=== PATIENT | male | born 1950 | race Caucasian/White ===

== ENCOUNTER 2018-12-31 12:28 | Inpatient (IN) ==
[2018-12-31] MEDS ORDERED: MORPHINE SULFATE 4 MG/1 ML IVP ONE ×3 (12:39→15:53)
[2018-12-31] MEDS ORDERED: Sodium Chloride 0.9% 1,000 ML PRIMARY IV ONE (12:43)
--- NOTE | 2018-12-31 12:51 | EKG ---
[address] [address] Measurements Intervals [place] Rate: 58 P: 5 DE: 141 QRS: 14 QRSD: 95 T: 11 QT: 433 QTc: 429 Interpretive Statements SINUS BRADYCARDIA No previous ECG available for comparison Electronically Signed On 12-31-18 15:52:15 MDT by Amarjit Winkler [email or web address]
[2018-12-31 12:52] LABS: BASOPHILS # (AUTO) 0.03 10*3/UL; BASOPHILS % (AUTO) 0.5 % (0-1); EOSINOPHILS # (AUTO) 0.06 10*3/UL; EOSINOPHILS % (AUTO) 0.9 % (0-8); Hematocrit [HCT] 49.5 % (42.0-52.0); Hemoglobin [HGB] 16.4 g/dL (14.0-18.0); MEAN CORPUSCULAR HEMOGLOBIN 30.4 PG (27-31); MEAN CORPUSCULAR HGB CONC 33.1 g/dL (33-37); MEAN CORPUSCULAR VOLUME 91.8 FL (80-90); MEAN PLATELET VOLUME 10.5 FL (7.4-12.2); MONOCYTES # (AUTO) 0.59 10*3/UL (0.3-0.8); MONOCYTES % (AUTO) 9.2 % (5-15); NEUTROPHILS % (AUTO) 43.7 % (50-80); RED BLOOD COUNT 5.39 10^6/uL (4.70-6.10)
[2018-12-31] MEDS ORDERED: LIDOCAINE HCL 2 % 10 ML JELLY URO-JECT TOPICAL PRN (12:52)
[2018-12-31 12:53] LABS: PLATELET MORPHOLOGY COMMENT NORMAL MORPHOLOGY (NORM); RBC MORPHOLOGY COMMENT NORMAL MORPHOLOGY (NORM); WBC MORPHOLOGY COMMENT NORMAL MORPHOLOGY (NORM)
[2018-12-31 13:00] LABS: BUN/CREATININE RATIO 15.83 (6-20); LIPASE 91 IU/L (23-300); SERUM ALBUMIN 4.8 g/dL (3.5-4.8)
[2018-12-31] MEDS ORDERED: ONDANSETRON 4 MG/2 ML VIAL IVP ONE (13:04)
[2018-12-31 13:15] LABS: BILIRUBIN,URINE NEGATIVE (NEG); CLARITY,URINE CLEAR (CLEAR); COLOR,URINE YELLOW (Y); GLUCOSE, URINE (UA) NEGATIVE (NEG); OCCULT BLOOD,URINE TRACE (NEG); PROTEIN,URINE 100 mg/dl (NEG); URINE SAMPLE TYPE CATH SPECIMEN; UROBILINOGEN,URINE 0.2 EU/dL (0.2)
[2018-12-31 13:16] LABS: URINE SPECIFIC GRAVITY - MAN 1.025
[2018-12-31 13:18] LABS: RBC,URINE 0-3 /hpf; SQUAMOUS EPITHELIAL CELL,UR MODERATE
--- NOTE | 2018-12-31 13:59 | DI ---
CT Head WO Contrast 12/31/2018 11:45 AM History: [facility] [place] ^Trauma Comparison: None. Procedure: Noncontrast CT images through the head were reviewed. Findings: There is no acute intracranial hemorrhage or extra-axial fluid collection. The ventricles a re symmetric. There is mild global atrophy which is within the expected range for age. Decreased atte nuation in the periventricular and subcortical white matter is consistent with mild chronic small ves tariq ischemic changes. There is otherwise normal antonio-white differentiation without focal mass or mass -effect. The visualized portions of the paranasal sinuses and mastoid air cells are clear. Review of the osseous structures demonstrate no depressed calvarial fracture or aggressive osseous lesion. Left periorbital soft tissue contusion is noted. Debris in the bilateral external auditory canals is most likely cerumen. Impression: 1. No acute intracranial findings. 2. Age related senescent changes as above.
--- NOTE | 2018-12-31 14:14 | DI ---
CT Cervical Spine WO Contrast 12/31/2018 11:44 AM History: [facility] [place] ^Trauma Comparison: None. Procedure: Noncontrast CT images were obtained through the cervical spine for review in the axial, sa gittal, and coronal planes. Findings: Osseous structures show no acute fracture or subluxation. A corticated ossific fragment maryan ng the T1 spinous processes most likely the sequela of remote trauma. There is preservation of the no rmal cervical lordosis. Vertebral body heights are maintained. C2/3: Normal intervertebral disc height. There is no significant osseous central canal stenosis. Unco vertebral joint and facet arthrosis results in mild left neuroforaminal narrowing. C3/4: Moderate intervertebral disc height loss. Posterior disc osteophyte complex results in narrowin g of the central canal to 5 mm. Uncovertebral joint and facet arthrosis results in severe right and m oderate left neuroforaminal narrowing. C4/5: Mild intervertebral disc height loss. Ossification of the posterior longitudinal ligament resul ts in narrowing of the central canal to 7 mm. Uncovertebral joint and facet arthrosis results in mild bilateral neuroforaminal narrowing. C5/6: Severe intervertebral disc height loss. Ossification of the posterior longitudinal ligament res ults in narrowing of the central canal to 8 mm. Uncovertebral joint and facet arthrosis result in sev ere bilateral neuroforaminal narrowing. C6/7: Moderate intervertebral disc height loss. Posterior disc osteophyte complex results in narrowin g of the central canal to 10 mm. Uncovertebral joint and facet arthrosis results in moderate bilatera l neuroforaminal narrowing. C7/T1: Mild intervertebral disc height loss. There is no significant osseous central canal stenosis. Uncovertebral joint and facet arthrosis results in mild left neural foraminal narrowing. The pre-vertebral soft tissues are within normal limits. There is no cervical lymphadenopathy. Vascul ar structures are grossly intact, though evaluation is limited in the absence of intravenous contrast . The visualized parotid and thyroid glands exhibit normal unenhanced morphology. Impression: 1. No evidence of acute cervical spine fracture or subluxation. 2. Multilevel degenerative disc disease as above.
--- NOTE | 2018-12-31 14:32 | DI ---
CT Chest W Contrast 12/31/2018 11:44 AM History: [facility] – [place] ^Trauma ^please get reconstruction views of spine Comparison: Chest x-ray from earlier the same day. Technique: Contrast enhanced CT of the chest was performed after the administration of 75 mL of Ultra vist 370 intravenous contrast. Axial, coronal, and sagittal images were obtained from the thoracic in let through the lung bases. Findings: Evaluation of the lungs demonstrates patchy groundglass opacities in the left greater than right lung bases. There is a small left pneumothorax mainly in the anterior left lung base. A thin sl iver of gas is noted along the left lung apex. There is no dense consolidation or pleural effusion. M ultiple bilateral pulmonary nodules are present, some of which are calcified consistent with prior gr anulomatous infection. The largest noncalcified nodule measures 5 mm in the right lower lobe on serie s 2 image 56. There is mild diffuse bronchial wall thickening without endobronchial lesion. There is no mediastinal or hilar lymphadenopathy. A calcified right hilar lymph node is noted. The aorta and pulmonary vesse ls demonstrate normal course and caliber. There are atheromatous aortic and coronary artery calcifica tions. Heart size is within normal limits with no pericardial effusion. The thyroid exhibits normal C T morphology. Nondisplaced left posterolateral eighth and ninth rib fractures are noted. There is mild adjacent gas in the deep soft tissues of the posterior chest wall. Multilevel degenerative endplate changes of th e spine are present without acute spinal fracture. There is mild bilateral gynecomastia. Impression: 1. There are 2 nondisplaced left posterolateral rib fractures with a small left pneumothorax and left greater than right lung base groundglass opacities that could represent atelectasis versus pulmonary contusion. Followup to resolution is recommended. 2. There is diffuse bronchial wall thickening without endobronchial lesion. This is a non-specific fi nding that is most commonly seen in the setting of acute or chronic bronchitis, as well as reactive a irways disease. 3. Multiple bilateral pulmonary nodules, the largest noncalcified nodule in the right lower lobe son uring 5 mm. Fleischner Society 2017 guidelines for management of incidentally detected pulmonary nodu les is as follows: Multiple solid lung nodules less than 6 mm: Low risk: No routine follow-up. High risk: Optional CT at 12 months. These findings were discussed telephonically with Dr. Boulter of the Emergency Department at 13:15 ho urs on the day of the exam.
--- NOTE | 2018-12-31 14:40 | DI ---
CT Abdomen/Pelvis W Contrast 12/31/2018 11:44 AM History: [facility] [place] ^Trauma ^please get reconstruction views of spine Comparison: None. Technique: Imaging was performed with a multi-detector CT scanner. Data acquisition was obtained from the dome of the diaphragm through the pubic symphysis without oral contrast and after the uneventful administration of 75 mL of Ultravist 370 intravenous contrast material. Multiplanar reformations wer e performed. Findings: There is normal CT appearance of the liver, gallbladder, adrenal glands, spleen, kidneys, a nd pancreas. Hollow viscus organs demonstrate normal course and caliber. There is scattered colonic d iverticulosis without CT evidence of acute diverticulitis. The appendix is unremarkable. A Jimenez cath eter is present in the decompressed urinary bladder. The prostate is enlarged. There is no free intra peritoneal air or fluid. No abdominopelvic lymphadenopathy is present. Vascular structures are intact . There is no inguinal or abdominal wall hernia. Left posterolateral eighth and ninth rib fractures with associated pneumothorax, soft tissue emphysem a, and possible pulmonary contusion are better assessed on the CT chest from the same day. There is m ultilevel degenerative disc disease and postsurgical changes at the L5/S1 level. There is transitiona l lumbosacral anatomy with sacralization of the bilateral L5 transverse processes. There are degenera tive changes of the bilateral SI joints with ankylosis on the right. There are degenerative changes o f the bilateral hips. Impression: 1. There is no CT evidence of solid organ or hollow viscus injury. 2. Colonic diverticulosis without CT evidence of acute diverticulitis. 3. A Jimenez catheter is present in the decompressed urinary bladder.
--- NOTE | 2018-12-31 14:54 | DI ---
XR CXR 1VW 12/31/2018 12:00 PM HISTORY: [facility] [place] ^trauma Comparison: None. Findings: A single portable frontal view of the chest is submitted. There is no focal consolidation. Patchy left greater than right lung base opacities. Lucency at the l eft lung apex and left lung base may represent artifact versus a small pneumothorax. There is no larg e pleural effusion. The cardiomediastinal silhouette is within normal limits for technique. The osseo us structures are notable for a nondisplaced left posterior eighth and ninth rib fractures. Impression: 1. Possible small left pneumothorax with nondisplaced left posterior eighth and ninth rib fractures. 2. There is no dense consolidation or pleural effusion. Patchy left greater than right lung base opac ities may represent atelectasis versus pulmonary contusion in the correct clinical setting.
[2018-12-31] MEDS ORDERED: KETOROLAC 15 MG/1 ML VIAL IVP ONE ×2 (15:14→15:17)
--- NOTE | 2018-12-31 15:48 | PDOC ---
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 He states that the latter is on on the roof slipped and then he fell off the rough. He landed flat on his back. He states that is when was knocked out of him. He denies losing any consciousness. Patient states that his back hurts. He's no longer short of breath but cannot take a deep breath. Patient had a complete workup in the emergency department which shows left revise been unremarkable. Patient has CT scan head chest abdomen and pelvis. It shows a small pneumothorax on the left with fractures of 89 ribs posteriorly. He also has compression fractures of's T6 and T11. Is unsure whether these fractures are new or old. Past Medical History Medical History: No significant past medical problems Surgical History: Shoulder surgery Tobacco Use: Never Smoker In the Past 12 Months, Have Used or Abuse Any of the Following Substance: None Medication / Allergies Home Medications: Home Medications Medication Instructions Recorded Confirmed NK 04/11/18 12/31/18 Allergies/Adverse Reactions: Allergies Allergy/AdvReac Type Severity Reaction Status Date / Time Penicillins Allergy Mild Hives Verified 12/31/18 13:42 Exam - Vitals Vital Signs: Vital Signs Temperature 96.3 F Temperature Source Temporal Artery Scan Pulse Rate [Pulse Oximeter 66 Right] Respiratory Rate 22 Blood Pressure [Left Arm] 124/81 Pulse Ox 97 Oxygen Delivery Method Room Air Height 6 ft 3 in Weight 250 lb - General General Appearance: No Acute Distress, Cooperative - Head Head Exam: Normal Inspection, Normocephalic - Eye Eye Exam: POSITIVE: PERRL, EOMI - Neck Neck Exam: Full ROM, No Tenderness - Respiratory Respiratory Exam: POSITIVE: Clear to Auscultation - Bilaterally, Breathing Non Labored - Cardiovascular Cardiovascular Exam: POSITIVE: RRR, No Murmur - GI/Abdominal GI/Abdominal Exam: POSITIVE: Non Tender, Non Distended, Soft - Rectal Rectal Exam: POSITIVE: Deferred - External Exam: POSITIVE: Deferred - Extremities Extremities Exam: POSITIVE: Normal Inspection, Full ROM, No Clubbing Present, No Edema Present, No Cyanosis Present - Back Additional Back Exam Details: Patient is too tender to roll over in bed so no back exam at this time - Neurological Neurological Exam: POSITIVE: Oriented x 3, Reflexes Normal, Normal Gait, CN II- XII Intact, Moves All Extremities Equally Additional Neurological Exam Details: Glascow coma 15 - Psychiatric Psychiatric Exam: POSITIVE: Normal Affect, Normal Mood - Integumentary Integumentary Exam: POSITIVE: Normal Color, Warm, Dry Results - Labs CBC and BMP: 12/31/18 12:35 12/31/18 12:35 Assessment and Plan - Patient Problems (1) Pneumothorax, left Current Visit: Yes Status: Acute Code(s): J93.9 - Pneumothorax, unspecified (2) Ribs, multiple fractures Current Visit: Yes Status: Acute Code(s): S22.49XA - Multiple fractures of ribs, unspecified side, initial encounter for closed fracture - Assessment / Plan Additional Assessment/Plan Details: This finding. The patient is being admitted. He'll need to be in for pain management. We'll do serial chest x-rays make sure the pneumothorax does not expand. Will consult orthopedic
--- NOTE | 2018-12-31 16:00 | DI ---
AP CHEST X-RAY, 12/31/2018 3:18 PM : Clinical History: Left pneumothorax. Previous Exam: Earlier today at 1231 hours. Soft Tissues: No subcutaneous emphysema. On this view the patient took a shallow inspiration. Bones: Normal. No rib fractures noted. Heart: Normal heart size. Lungs: No pneumothorax. The air collection seen on the CT scan may actually be in the extra parietal pleural space. There is increased density in the left lower lobe either representing atelectasis or a pulmonary contusion. Effusion(s): None. Mediastinum: Normal mediastinum. Nodules: No pulmonary nodules. Reading: No pneumothorax identified. There is a density in the left lower lobe that either represents atelecta sis or a pulmonary contusion.
[2018-12-31] MEDS ORDERED: DOCUSATE 100 MG CAPSULE PO PRN (16:13)
[2018-12-31] MEDS ORDERED: LIDOCAINE W/ SODIUM BICARB 0.5 ML SYR SUBD PRN (16:13)
[2018-12-31] MEDS ORDERED: ONDANSETRON 4 MG/2 ML VIAL IVP PRN (16:13)
[2018-12-31] MEDS ORDERED: MORPHINE SULFATE 2 MG/1 ML IVP PRN (16:13)
[2018-12-31] MEDS ORDERED: CALCIUM CARBONATE 500 MG (TUMS) CHEWABLE TABLET PO PRN (16:13)
[2018-12-31] MEDS ORDERED: oxyCODONE/APAP 7.5/325 Tab 1 TAB TAB PO PRN (19:19)
[2018-12-31] MEDS: KETOROLAC 15 MG/1 ML VIAL IVP SCH (20:37)
[2018-12-31] MEDS: FAMOTIDINE 20 MG TABLET PO SCH (20:37)
--- NOTE | 2018-12-31 20:56 | PDOC ---
Multiple Trauma HPI - General Chief Complaint: Trauma Stated Complaint: FELL OFF ROOF-TRAUMA Date Seen by Provider: 12/31/18 Time Seen by Provider: 12:30 Source: POSITIVE: Patient, Spouse Exam Limitations: POSITIVE: No limitations Nurse's Notes Reviewed & Considered: Yes - History of Present Illness Initial Comments: The patient is a 68-year-old male. He was shingling the roof of his house and he fell off a roof. He probably fell 15-20 feet and states he fell flat on his back. He states that the "wind was knocked out of me". He complains of pain over the posterior thorax which is exacerbated by movement and deep inspiration. He is brought to the emergency room by private auto; he reportedly refused ambulance transport. Patient denies any known associated head neck abdominal hip or extremity trauma or discomfort. Patient has a history of chronic back pain and has undergone back surgery. Have you received a tetanus shot in the past 10 years?: No Body Location Affected: REPORTS: Chest, Back Timing: REPORTS: Abrupt Duration: 1 hour Severity: Moderate Quality: REPORTS: "Pain" Location at Time of Onset: REPORTS: Home Associated Symptoms: REPORTS: Trouble Breathing, Recalls Injury, Recalls Coming to ER. DENIES: Memory Impairment, Blow to Head, Lost Consciousness Duration of Impairment/LOC:: 0 Any Prior Injuries Related to Current Complaint?: No - Patient Home Medications Home Medications: Home Medications NK 04/11/18 - Patient Allergies Allergies/Adverse Reactions: Allergies Allergy/AdvReac Type Severity Reaction Status Date / Time Penicillins Allergy Mild Hives Verified 12/31/18 16:19 Past Medical History - heen HEENT History: Denies History Cardiovascular History: Denies History Respiratory History: Denies History Gastrointestinal History: Denies History Genitourinary History: Denies History Endocrine History: Denies History Musculoskeletal History: Back Pain Neurological History: Denies History Blood Disorders: Denies History Psychiatric History: Denies History History of Sexually Transmitted Diseases: No Male Reproductive History: Denies History Cancer History: Denies History In Past Year Been Physically Harmed or Verbally Threatened: No History of MDRO: No History of Other Communicable Diseases: No Tobacco Use: Never Smoker Type of alcohol normally used: Beer In the Past 12 Months, Have Used or Abuse Any Substance: None Previous Surgical History: Yes Type / Date of Surgery: BACK SURGERY, CALISTA KNEE SURGERIES, RIGHT SHOULDER SURGERY Significant Family History: No pertinent family hx Past Medical History Reviewed: Reviewed - No Changes ROS - Limitations ROS Limitations: No Limitations Constitution: REPORTS: Denies Symptoms Cardiovascular: REPORTS: Denies Cardiac Symptoms Respiratory: REPORTS: Hurts To Breathe Neurological: REPORTS: Denies Neuro Symptoms Gastrointestinal: REPORTS: Denies GI Symptoms Endocrine: REPORTS: Denies Symptoms Musculoskeletal: REPORTS: Back Pain (Thoracic and lumbar areas) Genitourinary: REPORTS: Denies Symptoms Eyes: REPORTS: Denies Symptoms ENT: REPORTS: Denies Symptoms Skin: REPORTS: Denies Skin Symptoms Lympathic: REPORTS: Denies Lympathic Symptoms Immunologic: POSITIVE: Denies Symptoms Psychiatric: POSITIVE: Denies Psych Symptoms Multiple Trauma Exam - General Appearance General Appearance: POSITIVE: Alert, Cooperative, Moderate Distress. NEGATIVE: No Acute Distress, No Evidence of Trauma - HEENT Head / Face: POSITIVE: Atraumatic, Normal Inspection, No Facial Swelling Eyes: POSITIVE: Inspection Normal, PERRL, EOM's Intact, Eyelids Uninjured, Conjunctivae Uninjured, No Nystagmus, No Globe Trauma, Sclera Normal, Normal Corneal Inspection, No Papilledema Ears: POSITIVE: Ears Normal Inspection, TM Normal Inspection, Auricle Normal, External Canal Normal Nose: POSITIVE: Inspection Normal, No Apparent Trauma, Nares Normal, No CSF Leak Oropharynx: POSITIVE: External Inspection Nml, Pharynx Inspect. Nml, Airway Intact, Voice Normal, Moist Mucous Membranes, No Oral Injury, Lips Normal, Gums Normal, No Drooling, No Thrush, Normal Gag Reflex Dental: POSITIVE: No Dental Injury - Pupil Size Pupil Size: 3 mm: Bilateral (PERRLA) - Neck Neck: POSITIVE: Trachea Midline, Distracting Injuries. NEGATIVE: Nexus Criteria Negative - Respiratory / CVS Respiratory / CVS: POSITIVE: No Ecchymosis, Breath Sounds Normal, No Respiratory Distress, Heart Sounds Normal, Regular Rate/Rhythm, Rib Tenderness, Splinting, Tenderness (See diagram), See Diagram. NEGATIVE: Chest Non Tender (Pain on palpation posterior and anterior left thorax), Rib Palpable FX, Crepitus, SubQ Emphysema, Paradoxical Movements, Decreased Breath Sounds, Ecchymosis, Swelling, Abrasion(s), Wheezes, Rales, Rhonchi, Tachycardia, Bradycardia, Irregularly Irreg Rate Peripheral Pulses: Radial (R): 2+, Radial (L): 2+, Dorsalis-pedis (R): 2+, Dorsalis-pedis (L): 2+ - Abdomen Abdomen: Soft: (All Quadrants), Normal Bowel Sounds: (All Quadrants), Denies Tenderness: (All Quadrants), No Splenomegaly: (All Quadrants), No Hepatomegaly: (All Quadrants), No Guarding: (All Quadrants), No Rebound: (All Quadrants), No Palpable Pulse: (All Quadrants), No Palpabale Mass: (All Quadrants), No Distention: (All Quadrants), No Rigidity: (All Quadrants) - Neuro / Psych 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 Tenderness (Thoracic and lumbosacral), Limited ROM (Pain with flexion and lying flat), See Diagram. NEGATIVE: Painless ROM, CVA Tenderness (R), CVA Tenderness (L), Muscle Spasm - Extremities Extremity Assessment: Non-Tender: (ALL), Normal ROM: (ALL), No Edema: (ALL), Normal Inspection: (ALL), No Swelling: (ALL) Joint Exam: POSITIVE: Joints Normal, Normal ROM, Normal Gait, Normal Weight Bearing Images - Complete Complete: 1 - Pain on palpation 2 - Pain on palpation Multiple Trauma Progress - Results Reviewed by me Xrays/CTs/US Reviewed by me: Yes Discussed with Radiologist: Yes Radiology Findings: AP chest x-ray and CT scan of chest with IV contrast with reconstruction views of the spine shows posterior lateral fractures of the left eighth and ninth rib with small pneumothorax. CT scan of abdomen and pelvis with IV contrast normal. Spinal reconstruction views on CT chest and abdomen shows no acute injuries. Lab Results Reviewed by Me: Yes Lab Results:: Laboratory Results 3 12/31/18 12/31/18 12/31/18 12:35 12:35 12:35 WBC 6.41 RBC 5.39 Hgb 16.4 Hct 49.5 MCV 91.8 H MCH 30.4 MCHC 33.1 RDW Std Deviation 47.4 RDW Coeff of Celina 14.2 Plt Count 239 MPV 10.5 Immature Gran % (Auto) 0.5 Neut % (Auto) 43.7 L Lymph % (Auto) 45.2 Caswell % (Auto) 9.2 Eos % (Auto) 0.9 Baso % (Auto) 0.5 Immature Gran # (Auto) 0.03 Neut # (Auto) 2.80 Lymph # (Auto) 2.90 Caswell # (Auto) 0.59 Eos # (Auto) 0.06 Baso # (Auto) 0.03 WBC Morphology Comment Normal morphology Plt Morphology Comment Normal morphology RBC Morph Comment Normal morphology PT 11.5 INR 1.00 Sodium 147 H Potassium 4.0 Chloride 110 Carbon Dioxide 23 Anion Gap 14 BUN 19 Creatinine 1.2 Estimated GFR 60 BUN/Creatinine Ratio 15.83 Glucose 108 Calculated Osmolality 306.0 H Lactic Acid Calcium 9.9 Total Bilirubin 0.6 AST 49 ALT 28 Alkaline Phosphatase 95 Troponin I Total Protein 8.0 Albumin 4.8 Globulin 3.2 Albumin/Globulin Ratio 1.50 Amylase Lipase Ur Collection Type Urine Color Urine Clarity Urine pH Ur Specific Franklin U Specif Grav (Refrac) Urine Protein Urine Glucose (UA) Urine Ketones Urine Occult Blood Urine Nitrate Urine Bilirubin Urine Urobilinogen Ur Leukocyte Esterase Urine RBC Urine WBC Ur Squamous Epith Cells Ur Renal Epithelial Cell Urine Crystals Urine Bacteria Urine Casts Urine Mucus Urine Trichomonas Urine Yeast Ur Culture Indicated? 12/31/18 12/31/18 12/31/18 12:35 12:35 12:35 WBC RBC Hgb Hct MCV MCH MCHC RDW Std Deviation RDW Coeff of Celina Plt Count MPV Immature Gran % (Auto) Neut % (Auto) Lymph % (Auto) Caswell % (Auto) Eos % (Auto) Baso % (Auto) Immature Gran # (Auto) Neut # (Auto) Lymph # (Auto) Caswell # (Auto) Eos # (Auto) Baso # (Auto) WBC Morphology Comment Plt Morphology Comment RBC Morph Comment PT INR Sodium Potassium Chloride Carbon Dioxide Anion Gap BUN Creatinine Estimated GFR BUN/Creatinine Ratio Glucose Calculated Osmolality Lactic Acid 1.8 Calcium Total Bilirubin AST ALT Alkaline Phosphatase Troponin I < 0.012 Total Protein Albumin Globulin Albumin/Globulin Ratio Amylase 44 Lipase 91 Ur Collection Type Urine Color Urine Clarity Urine pH Ur Specific Franklin U Specif Grav (Refrac) Urine Protein Urine Glucose (UA) Urine Ketones Urine Occult Blood Urine Nitrate Urine Bilirubin Urine Urobilinogen Ur Leukocyte Esterase Urine RBC Urine WBC Ur Squamous Epith Cells Ur Renal Epithelial Cell Urine Crystals Urine Bacteria Urine Casts Urine Mucus Urine Trichomonas Urine Yeast Ur Culture Indicated? 3 12/31/18 13:05 WBC RBC Hgb Hct MCV MCH MCHC RDW Std Deviation RDW Coeff of Celina Plt Count MPV Immature Gran % (Auto) Neut % (Auto) Lymph % (Auto) Caswell % (Auto) Eos % (Auto) Baso % (Auto) Immature Gran # (Auto) Neut # (Auto) Lymph # (Auto) Caswell # (Auto) Eos # (Auto) Baso # (Auto) WBC Morphology Comment Plt Morphology Comment RBC Morph Comment PT INR Sodium Potassium Chloride Carbon Dioxide Anion Gap BUN Creatinine Estimated GFR BUN/Creatinine Ratio Glucose Calculated Osmolality Lactic Acid Calcium Total Bilirubin AST ALT Alkaline Phosphatase Troponin I Total Protein Albumin Globulin Albumin/Globulin Ratio Amylase Lipase Ur Collection Type Cath specimen Urine Color Yellow Urine Clarity Clear Urine pH 5.0 Ur Specific Franklin >1.030 U Specif Grav (Refrac) 1.025 Urine Protein 100 A Urine Glucose (UA) Negative Urine Ketones Negative Urine Occult Blood Trace H Urine Nitrate Negative Urine Bilirubin Negative Urine Urobilinogen 0.2 Ur Leukocyte Esterase Negative Urine RBC 0-3 Urine WBC None Ur Squamous Epith Cells Moderate Ur Renal Epithelial Cell None Urine Crystals None Urine Bacteria None Urine Casts None Urine Mucus Moderate Urine Trichomonas None Urine Yeast None Ur Culture Indicated? Culture not set CBC and BMP: 12/31/18 12:35 12/31/18 12:35 EKG Interpreted/Reviewed By Me:: Yes (normal) EKG Interpretation:: POSITIVE: Normal Sinus Rhythm, Normal Rate, Normal Int ervals, Normal Scott, Normal QRS, Normal ST/T - Patient's Progress Pain Medication Addressed: POSITIVE: Yes (Medicated with morphine sulfate in the emergency room) School/Work Release Addressed: POSITIVE: Not Applicable Re-Examine Time:: 14:30 Re-Examine Comment: Results of radiologic and laboratory studies discussed with patient. Advised he does have rib fractures and a small pneumothorax. Medicated with morphine sulfate. Case discussed with surgeon azure principal solution specialist, Dr. Chatman, who will come to the emergency room to evaluate patient and to admit for further evaluation and treatment. Status: POSITIVE: Improved, Re-Examined - Consult Consult (If Yes, Name of Consulting MD & Time Called): Yes (Dr. Chatman, [id number]) Consulting MD will see pt:: POSITIVE: In ED, [facility] [place] Admit Counseled: POSITIVE: Patient, Family (), RE: Lab Results, RE: Radiology Results, RE: DX, RE: Need for F/U Patient Care Time - Estimated PCT Patient Care Time (In Minutes): 60 Vital Signs - VS Reviewed Vital Signs Reviewed: Yes Discharge Clinical Impression: Ribs, multiple fractures, Pneumothorax Discharge Disposition: Admit to Inpatient Condition: Fair Patient Problem(s) Reviewed: Yes Date Decision to Admit to Inpatient: 12/31/18 Time Decision to Admit to Inpatient: 14:20
[2019-01-01] MEDS: KETOROLAC 15 MG/1 ML VIAL IVP SCH ×2 (04:07→10:02)
[2019-01-01 06:33] VITALS: BP 126/71; RESP 18; TEMP 97.2
--- NOTE | 2019-01-01 07:51 | DI ---
AP CHEST X-RAY, 01/01/2019 7:00 AM : Clinical History: Pneumothorax. Previous Exam: 12/31/2018. Soft Tissues: No subcutaneous emphysema. Bones: No rib fractures noted. Heart: Normal heart size. Lungs: No pneumothorax present. The density behind the left heart has improved. This is either atelec tasis or a pulmonary contusion. Effusion(s): None. Mediastinum: Normal mediastinum. Reading: No pneumothorax. Left lower lobe atelectasis versus pulmonary contusion has improved.
[2019-01-01] MEDS: FAMOTIDINE 20 MG TABLET PO SCH (08:51)
[2019-01-01 09:34] VITALS: O2SAT 95
--- NOTE | 2019-01-01 11:58 | DCSUMMARY ---
Discharge Summary Admit Date: 01/01/19 Discharge Date: 01/01/19 Admitting Diagnosis: left pneumothorax; fracture of ribs on left Discharge Diagnosis: Left pneumothorax; fracture ribs on left Hospital Course: Patient was admitted on 12/31/2018. He fell off a roof and had 2 rib fractures on left and a small pneumothorax. He was admitted for pain control. On first day of Ambien the hospital on January 02 his pain is better controlled. Is able to take a deep breath. He is having no discomfort. Little blood on the urine after removing the Jimenez. He felt he could go home. Exam - Vitals Vital Signs: Vital Signs Temperature 97.2 F Temperature Source Temporal Artery Scan Pulse Rate [Pulse Oximeter 67 Right] Pulse Rate [left hand] 51 Pulse Rate 51 Respiratory Rate 18 Blood Pressure [Left Arm] 126/71 Blood Pressure 141/81 Pulse Ox [left hand] 95 Pulse Ox 96 Oxygen Delivery Method [left Room Air hand] Oxygen Delivery Method Room Air Height 6 ft 3 in Weight 202 lb 3.2 oz - General General Appearance: Cooperative - Eye Eye Exam: POSITIVE: PERRL - Respiratory Respiratory Exam: POSITIVE: Clear to Auscultation - Bilaterally, Breathing Non Labored - Extremities Extremities Exam: POSITIVE: Full ROM - Back Back Exam: POSITIVE: Normal Inspection (Patient had no tenderness to palpation of the spine), Full ROM, Muscle Spasm, No CVA Tenderness Patient Problems - Patient Problem List (1) Pneumothorax, left Status: Acute Code(s): J93.9 - Pneumothorax, unspecified Category: Medical (2) Ribs, multiple fractures Status: Acute Code(s): S22.49XA - Multiple fractures of ribs, unspecified side, initial encounter for closed fracture Category: Medical
== END 2019-01-01 11:46 | disposition home or self-care (01) | DRG 200 ==
LOC: ER 12:28 → MED/SURG 14:10
PROVIDERS: ADMIT Surgery; ATTEND Surgery